=== PATIENT | female | born 1930 | race Caucasian/White ===

== ENCOUNTER 2018-05-09 06:52 | Day surgery (SDC) | payer MEDICARE, OTHER ==
[~2018-05-09 06:52] MED LIST: ACETAMINOPHEN 325 MG TAB PO; MIDAZOLAM INJ 2 MG/2 ML VIAL (J2250) As Ordered; fentaNYL 100 MCG/2 ML INJECTION (J3010) As Ordered
[2018-05-09] MEDS ORDERED: OFLOXACIN 0.3 % (OCUFLOX) OPTH SOL 5ML OS (07:00)
[2018-05-09] MEDS ORDERED: PHENYLEPHRINE 2.5% OPHTH SOL 2ML OS (07:00)
[2018-05-09] MEDS ORDERED: LIDOCAINE 3.5 % 1ML OPHTH TOPICAL GEL OU (07:00)
[2018-05-09] MEDS ORDERED: PHENYLEPHRINE HCL 10 % OPHTH. SOL 5ML OS (07:00)
[2018-05-09] MEDS ORDERED: TROPICAMIDE 1% OPHTH SOLN 2ML OS (07:00)
[2018-05-09] MEDS ORDERED: CYCLOPENTOLATE 2% OPHTH SOLN 2ML BTL OS (07:00)
[2018-05-09] MEDS ORDERED: PROPARACAINE 0.5% OPHTH SOL 15ML OS (07:01)
[2018-05-09] MEDS: ACETYLCHOLINE OPHTH SOLN 1% 2ML (MIOCHOL-E) As Ordered (08:09)
[2018-05-09] MEDS: POVIDONE-IODINE 5% OPHTH PREP SOL 30ML As Ordered (08:26)
[2018-05-09] MEDS ORDERED: CEFUROXIME 1MG/0.1ML INTRACAMERAL INJ As Ordered (08:29)
[2018-05-09] MEDS: LIDOCAINE 1% SDV 5 ML VIAL As Ordered (08:30)
[2018-05-09] MEDS: BSS with VANC/TOB/EPI for EYE CASES IR (08:31)
[2018-05-09] MEDS: HEALON DUET (HEALON 10MG/ML 0.55ML & HEALON ENDOCOAT 30MG/ML 0.85ML) As Ordered (08:33)
[2018-05-09] MEDS: TRIAMCINOLONE PRES FR 40 MG/ML 1ML(TRIESENCE)(OR EYE ONLY)(J3300 PER 1MG) As Ordered (08:34)
[2018-05-09] MEDS: MOXIFLOXACIN IN BSS 0.25MG/0.25ML INTRACAMERAL INJ (OR EYE ONLY)(J2280) As Ordered (08:36)
[2018-05-09] MEDS: KETOROLAC 0.5% OPHTH SOLN OS (09:00)
[2018-05-09] MEDS ORDERED: TRIMETHOBENZAMIDE 300 MG CAP PO (09:00)
[2018-05-09] MEDS: AcetaZOLAMIDE 500 MG ER CAP PO (09:00)
== END 2018-05-09 09:21 | disposition home or self-care (01) ==
LOC: M SDC 09:21
DX: H59.022 Cataract (lens) fragments in eye following cataract surgery, left eye (principal); H40.052 Ocular hypertension, left eye; E03.9 Hypothyroidism, unspecified; I10 Essential (primary) hypertension; I48.91 Unspecified atrial fibrillation; M12.9 Arthropathy, unspecified; Z88.6 Allergy status to analgesic agent; Z88.8 Allergy status to other drugs, medicaments and biological substances; Z91.018 Allergy to other foods; Z79.899 Other long term (current) drug therapy; Z78.0 Asymptomatic menopausal state; Z72.0 Tobacco use
CPT/HCPCS: 66999

== ENCOUNTER 2018-08-22 06:06 | Day surgery (SDC) | payer MEDICARE, OTHER ==
[~2018-08-22] VITALS: Ht 156.8 cm; Wt 59.9 kg
[~2018-08-22 06:06] MED LIST changes: -ACETAMINOPHEN 325 MG TAB PO; +AMLO5TAB6 PO; +ATEN50TA2 PO; +BACITAB PO; +BRIN1OPH OS; +COLA100C5 PO; +COMB0.2S OS; +FISH1000 PO; +FISH7.5C PO; +GARL10005 PO; +GARL3CAP3 PO; +HYDR-3363 PO; +HYDR-3713 PO; +HYDR1OI TOP; +KETO5OPD OS; +LEVA1TAB2 PO; +LEVO50TA5 PO; +LISI-538 PO; +MAGN250T11 PO; +MAGN250T7 PO; +MAGN400T PO; +MAGN400T5 PO; +MAPA325T2 PO; -MIDAZOLAM INJ 2 MG/2 ML VIAL (J2250) As Ordered; +MILK120011 PO; +MIRA3350 PO; +MULT1TAB9 PO; +MULTTAB25 PO; +PERC5TAB12 PO; +PRED20TA PO; +PREDOPD OS; +SENO8.6T10 PO; +TRAM50TA2 PO; +TRAV04OPD OS; +VITA100066 PO; +VITA200016 PO; +VITMTA PO; +XARE20TA PO; -fentaNYL 100 MCG/2 ML INJECTION (J3010) As Ordered
[2018-08-22] MEDS ORDERED: TOBRAMYCIN INJ 80 MG/2 ML VIAL (J3260) As Ordered ONE (06:25)
[2018-08-22] MEDS ORDERED: mitoMYcin 0.2 MG/VIAL KIT FOR OPHTHALMIC USE (J7315 PER 0.2MG) As Ordered ONE (06:25)
[2018-08-22] MEDS ORDERED: POVIDONE-IODINE 5% OPHTH PREP SOL 30ML As Ordered ONE (06:25)
[2018-08-22] MEDS ORDERED: TOBRADEX OPHTH OINT 3.5 GM As Ordered ONE (06:26)
[2018-08-22] MEDS ORDERED: BETAMETHASONE SOLUSPAN 6MG/ML INJ 5ML (J0702) As Ordered ONE (06:26)
[2018-08-22] MEDS ORDERED: OFLOXACIN 0.3 % (OCUFLOX) OPTH SOL 5ML OS ONE (07:00)
[2018-08-22] MEDS ORDERED: LIDOCAINE 3.5 % 1ML OPHTH TOPICAL GEL OU ONE (07:00)
[2018-08-22] MEDS ORDERED: MIDAZOLAM INJ 2 MG/2 ML VIAL (J2250) As Ordered ONE (07:08)
[2018-08-22] MEDS ORDERED: fentaNYL 100 MCG/2 ML INJECTION (J3010) As Ordered ONE (07:09)
[2018-08-22 08:43] VITALS: BP 163/72
--- NOTE | 2018-09-18 20:39 | RO ---
DATE OF PROCEDURE: 08/22/2018 PREPROCEDURE DIAGNOSIS: Glaucoma left eye. POSTPROCEDURE DIAGNOSIS: Glaucoma left eye. PROCEDURE: Trabeculectomy with Mitomycin C in the left eye. SURGEON: Serafin Arrington MD STRATEGIC PLANNER: None. ANESTHESIA: COMPLICATIONS: None. DESCRIPTION OF PROCEDURE: The patient was brought to the operating room, laid in supine position, the eye was prepped and draped in a sterile fashion for ophthalmic surgery and a lid speculum was placed. A #7-0 Vicryl suture was placed in the superior limbal area to rotate the eye inferiorly, which was held in place with the help of the mosquito clamps. Subconjunctival injection of 2% lidocaine was given in the superior subconjunctival area following which conjunctival peritomy was done for 2-1/2 clock hours between 10 o'clock and 1 o'clock, followed by subconjunctival dissection superiorly, medially and laterally. Hemostasis was obtained as necessary. Following which, mitomycin 0.3 mg per mL was then placed on the scleral bed for 2-1/2 minutes followed by copious irrigation with balanced salt solution. Limbal-based scleral flap was then created with the help of the straight and curved blade. After the flap was elevated, a 2.5 mm keratome was used to enter the anterior chamber close to the blue line. Following this, a scleral punch was used to create a trabeculectomy underneath the flap. This was followed by a peripheral iridectomy with the help of 0.12 forceps and Vannas scissors. The scleral flap was then secured in place using three interrupted nylon sutures. Conjunctiva was draped over and closed with the help of #8-0 Vicryl and #10-0 nylon sutures in a mattress fashion. No leaks were noted. Anterior chamber was maintained throughout the procedure. At the end of the case, lid speculum was removed, and intracameral moxifloxacin was given, TobraDex Ointment was applied, eye was patched, Spaulding shield applied, and the patient returned to the recovery room in stable condition.
== END 2018-08-22 09:15 | disposition home or self-care (01) ==
LOC: M SDC 06:06
PROVIDERS: ATTEND Ophthalmology
DX: H40.9 Unspecified glaucoma (principal); I12.9 Hypertensive chronic kidney disease with stage 1 through stage 4 chronic kidney disease, or unspecified chronic kidney disease; I48.2 Chronic atrial fibrillation; N18.3 Chronic kidney disease, stage 3 (moderate); E78.5 Hyperlipidemia, unspecified; K64.8 Other hemorrhoids; E03.9 Hypothyroidism, unspecified; M19.90 Unspecified osteoarthritis, unspecified site; T88.59XD Other complications of anesthesia, subsequent encounter; M21.612 Bunion of left foot; Z88.6 Allergy status to analgesic agent; Z88.8 Allergy status to other drugs, medicaments and biological substances; Z91.048 Other nonmedicinal substance allergy status; Z79.899 Other long term (current) drug therapy; Z79.01 Long term (current) use of anticoagulants; Z98.41 Cataract extraction status, right eye; Z98.42 Cataract extraction status, left eye; Z96.1 Presence of intraocular lens; Z86.010 Personal history of colon polyps; Z78.0 Asymptomatic menopausal state; Z87.891 Personal history of nicotine dependence
CPT/HCPCS: 66170; J0702; J2250; J3010; J3260; J7315

== ENCOUNTER 2018-12-05 05:56 | Day surgery (SDC) | payer MEDICARE, OTHER ==
[~2018-12-05] VITALS: Ht 154.9 cm; Wt 62.1 kg
[~2018-12-05 05:56] MED LIST changes: +COMB0.2S OP
[2018-12-05] MEDS ORDERED: ACETAMINOPHEN 325 MG TAB PO PRN (06:00)
[2018-12-05] MEDS ORDERED: ACETYLCHOLINE OPHTH SOLN 1% 2ML (MIOCHOL-E) As Ordered ONE (06:38)
[2018-12-05] MEDS ORDERED: POVIDONE-IODINE 5% OPHTH PREP SOL 30ML As Ordered ONE (06:38)
[2018-12-05] MEDS ORDERED: TRIAMCINOLONE PRES FR 40 MG/ML 1ML(TRIESENCE)(OR EYE ONLY)(J3300 PER 1MG) As Ordered ONE (06:38)
[2018-12-05] MEDS ORDERED: HEALON DUET PRO(HEALON 10MG/ML 0.55ML & HEALON ENDOCOAT 30MG/ML 0.85ML) As Ordered ONE ×2 (06:39→08:24)
[2018-12-05] MEDS ORDERED: LIDOCAINE 2% W/EPIN INJ 20ML **PRES FREE As Ordered ONE (06:39)
[2018-12-05] MEDS ORDERED: BALANCED SALT IRRIGATION SOL 500ML GLASS BOTTLE (FOR OR EYE COMPOUND) As Ordered ONE (06:39)
[2018-12-05] MEDS ORDERED: TOBRADEX OPHTH OINT 3.5 GM As Ordered ONE (06:39)
[2018-12-05] MEDS ORDERED: OFLOXACIN 0.3 % (OCUFLOX) OPTH SOL 5ML OS ONE (07:00)
[2018-12-05] MEDS ORDERED: CYCLOPENTOLATE 2% OPHTH SOLN 2ML BTL OS ONE (07:00)
[2018-12-05] MEDS ORDERED: LIDOCAINE 3.5 % 1ML OPHTH TOPICAL GEL OU ONE (07:00)
[2018-12-05] MEDS ORDERED: PHENYLEPHRINE HCL 10 % OPHTH. SOL 5ML OS PRN (07:00)
[2018-12-05] MEDS ORDERED: BSS with VANC/TOB/EPI for EYE CASES IR ONE (07:00)
[2018-12-05] MEDS ORDERED: PHENYLEPHRINE 2.5% OPHTH SOL 2ML OS ONE (07:00)
[2018-12-05] MEDS ORDERED: TROPICAMIDE 1% OPHTH SOLN 2ML OS ONE (07:00)
[2018-12-05] MEDS ORDERED: PROPARACAINE 0.5% OPHTH SOL 15ML OS PRN (07:01)
[2018-12-05] MEDS ORDERED: MIDAZOLAM INJ 2 MG/2 ML VIAL (J2250) As Ordered ONE ×2 (07:35→08:48)
[2018-12-05] MEDS ORDERED: fentaNYL 100 MCG/2 ML INJECTION (J3010) As Ordered ONE ×2 (07:35→08:47)
[2018-12-05] MEDS ORDERED: LIDOCAINE 2% MDV 20 ML VIAL As Ordered ONE (07:46)
[2018-12-05] MEDS ORDERED: AcetaZOLAMIDE 500 MG ER CAP As Ordered ONE (09:37)
[2018-12-05] MEDS ORDERED: KETOROLAC 0.5% OPHTH SOLN OS ONE (09:45)
[2018-12-05] MEDS ORDERED: AcetaZOLAMIDE 500 MG ER CAP PO ONE (09:45)
[2018-12-05] MEDS ORDERED: TRIMETHOBENZAMIDE 300 MG CAP PO PRN (09:45)
[2018-12-05 10:30] VITALS: BP 176/82
--- NOTE | 2018-12-07 13:40 | RO ---
DATE OF PROCEDURE: 12/05/2018 PREOPERATIVE DIAGNOSIS: Dislocated intraocular lens left eye. POSTOPERATIVE DIAGNOSIS: Dislocated intraocular lens left eye. PROCEDURE: Intraocular lens exchange with placement of the anterior chamber intraocular lens [id number], 19.0 diopters. SURGEON: Dr. Arrington SHEAR GRINDER OPERATOR HELPER: ANESTHESIA: PROCEDURE IN DETAIL: Patient was brought to the operating room and laid in supine position. The eye was prepped and draped in a sterile fashion for ophthalmic surgery, and a lid speculum was placed. Patient was first observed as the initial plan was to do a scleral fixated intraocular lens with glued haptics. It was noted that the patient had a single piece lens, which was completely subluxated. With the help of the Kuglen, Healon was placed behind the lens to levitate the lens. The lens was then prolapsed into the anterior chamber. With the help of the lens cutters, after EndoCoat was injected into the anterior chamber and the anterior chamber maintainer was placed, the lens was cut into two small halves and retrieved through the temporal clear corneal incision measuring about 3.5 mm. Following this, it was attempted to place in a three-piece [id number] with glued haptics. Patient was not able to cooperative and because of her age, was really agitated. At that point, we decided to just place in an anterior chamber intraocular lens. The wound was extended to 5 mm, following which the anterior chamber lens was placed. Prior to that, partial anterior vitrectomy was done at standard settings. Patient had a previous peripheral iridectomy. Three interrupted #10-0 nylon sutures were placed temporally. Excess viscoelastic was aspirated. The wound was hydrated. Intracameral cefuroxime was given at the end of the case and sub-Tenon Kenalog. Lid speculum was removed, and patient was returned to the recovery room and the case was discussed in great detail.
== END 2018-12-05 10:35 | disposition home or self-care (01) ==
LOC: M SDC 05:56
PROVIDERS: ATTEND Ophthalmology
DX: T85.22XA Displacement of intraocular lens, initial encounter (principal); I48.91 Unspecified atrial fibrillation; E03.9 Hypothyroidism, unspecified; Z79.82 Long term (current) use of aspirin; Z91.040 Latex allergy status; Z79.899 Other long term (current) drug therapy; Z79.01 Long term (current) use of anticoagulants; Z88.8 Allergy status to other drugs, medicaments and biological substances
CPT/HCPCS: 66986; J2250; J3010; J3300; V2632

== ENCOUNTER 2019-04-04 07:17 | Day surgery (SDC) | payer MEDICARE, OTHER ==
[~2019-04-04] VITALS: Ht 154.9 cm; Wt 54.9 kg
[~2019-04-04 07:17] MED LIST changes: +BESI0.6S OU; +GARL500C PO; -HYDR1OI TOP; +HYDR1OIN2 TOP; +KETO0.5S2 OS; -KETO5OPD OS; +LIDOCAINE 2% INJ 100 MG/5 ML SDV (FOR ANES.) As Ordered ONE; +MULTTAB12 PO; +NS 1,000 ML IV ONE; +PROPOFOL 200 MG/20 ML VIAL As Ordered ONE; +[UNRECOGNIZED DRUG - CODE] OS
--- NOTE | 2019-04-04 09:19 | ROOR ---
Patient Name: Debbi Hall Procedure Date: 04/04/2019 9:00 AM Date of : 1930 Age: 88 Room: [facility], [facility]IN [facility] Gender: Female Note Status: Finalized Procedure: Colonoscopy Indications: High risk colon cancer surveillance: Personal history of colonic polyps Providers: Ministerio Vaughn Jr, MD Referring MD: Gunnar Swift MD Requesting Provider: Medicines: Propofol per Anesthesia Complications: No immediate complications. Procedure: Pre-Anesthesia Assessment: - Prior to the procedure, a History and Physical was performed, and patient medications and allergies were reviewed. The patient is competent. The risks and benefits of the procedure and the sedation options and risks were discussed with the patient. All questions were answered and informed consent was obtained. Patient identification and proposed procedure were verified by the physician and the nurse in the pre-procedure area and in the procedure room. Mental Status Examination: alert and oriented. Airway Examination: normal oropharyngeal airway and neck mobility. Respiratory Examination: clear to auscultation. CV Examination: normal. ASA Grade Assessment: II - A patient with mild systemic disease. After reviewing the risks and benefits, the patient was deemed in satisfactory condition to undergo the procedure. The anesthesia plan was to use moderate sedation / analgesia (conscious sedation). Immediately prior to administration of medications, the patient was re-assessed for adequacy to receive sedatives. The heart rate, respiratory rate, oxygen saturations, blood pressure, adequacy of pulmonary ventilation, and response to care were monitored throughout the procedure. The physical status of the patient was re-assessed after the procedure. The Colonoscope was introduced through the anus and advanced to the cecum, identified by appendiceal orifice and ileocecal valve. The colonoscopy was performed without difficulty. The patient tolerated the procedure well. Findings: The rectum, recto-sigmoid colon, descending colon, transverse colon, ascending colon, cecum, appendiceal orifice and ileocecal valve appeared normal. Multiple small and large-mouthed diverticula were found in the sigmoid colon. Impression: - The rectum, recto-sigmoid colon, descending colon, transverse colon, ascending colon, cecum, appendiceal orifice and ileocecal valve are normal. - Diverticulosis in the sigmoid colon. - No specimens collected. Recommendation: - Discharge patient to home (ambulatory). - Repeat colonoscopy in 5 years for surveillance. Ministerio Vaughn MD Ministerio Vaughn Jr, MD 04/04/2019 9:19:08 AM Electronically signed by Ministerio Vaughn Jr, MD Number of Addenda: 0 Note Initiated On: 04/04/2019 9:00 AM Estimated Blood Loss: Estimated blood loss: none.
[2019-04-04 09:40] VITALS: BP 135/87
== END 2019-04-04 09:47 | disposition home or self-care (01) ==
LOC: M OPP 07:17
PROVIDERS: ATTEND Surgery
DX: Z12.11 Encounter for screening for malignant neoplasm of colon (principal); Z86.010 Personal history of colon polyps; K57.30 Diverticulosis of large intestine without perforation or abscess without bleeding; E03.9 Hypothyroidism, unspecified; I48.91 Unspecified atrial fibrillation; Z87.891 Personal history of nicotine dependence; I10 Essential (primary) hypertension; E78.5 Hyperlipidemia, unspecified; M19.90 Unspecified osteoarthritis, unspecified site; K64.8 Other hemorrhoids; Z78.0 Asymptomatic menopausal state; M21.611 Bunion of right foot; M21.612 Bunion of left foot; Z91.018 Allergy to other foods; Z91.040 Latex allergy status; Z88.7 Allergy status to serum and vaccine; Z88.8 Allergy status to other drugs, medicaments and biological substances; Z79.899 Other long term (current) drug therapy